=== PATIENT | female | born 1975 | race Caucasian/White ===

== ENCOUNTER 2020-07-20 05:16 | Inpatient (IN) | payer BC, SELFPAY ==
[2020-05-21 08:09] VITALS: BMI 25.8
--- NOTE | 2020-07-12 13:25 | EKG12_ITS ---
Test Reason : PREOP Blood Pressure : / mmHG Vent. Rate : 072 BPM Atrial Rate : 072 BPM P-R Int : 154 ms QRS Dur : 078 ms QT Int : 386 ms P-R-T Axes : 052 059 045 degrees QTc Int : 422 ms Normal sinus rhythm Nonspecific ST abnormality Abnormal ECG Confirmed by OLIVIER NICHOLS, MARK ([id number]), news editor ALTAGRACIA AVILA ([id number]) on 07/13/2020 12:25:03 PM Referred By: Chato Willett Confirmed By:MARK AGUAYO MD
[2020-07-12 14:24] LABS: Absolute Lymphocyte Count 1.77 X10^3/uL (0.83-4.51); Absolute Neutrophil Count 4.1 X10^3/uL (2.0-7.7); Basophil# 0.04 X10^3/uL; Basophil% 0.6 % (0-1); Eosinophil# 0.05 X10^3/uL; Eosinophils% 0.8 % (0-5); Hematocrit 40.4 % (37-47); Hemoglobin 13.1 g/dL (12.0-15.0); Lymphocyte # 1.77 X10^3/ul (4.0); Lymphocyte % 27.8 % (19-41); Mean Corp Hgb Conc 32.4 g/dL (32-36); Mean Corpuscular Hgb 29.8 pg (27.0-32.0); Mean Corpuscular Volume 91.8 fL (81-99); Mean Platelet Vol. 9.5 fl (6.2-12.0); Monocyte# 0.38 X10^3/uL; NRBC Flagged by Analyzer 0 % (0-5); Neutrophil % 64.3 % (47-70); Platelet Count 265 K/mm3 (150-450); RBC Distribution Width CV 12.2 % (11.6-14.6); RBC Distribution Width SD 40.9 fl (35.1-43.9); White Blood Count 6.4 K/mm3 (4.4-11.0)
[2020-07-12 14:50] LABS: Anion Gap 6 (5-15); BUN 11 mg/dL (7-18); Calcium,Total 9.4 mg/dL (8.5-10.1); Chloride 103 mmol/L (98-107); Creatinine, Serum 0.85 mg/dL (0.55-1.02); EST Glomerular Filtration Rate 77 mL/min (>60); Est Glom Filt Rate - Afr Amer 94 mL/min (>60); Glucose 90 mg/dL (74-106); Potassium 3.6 mmol/L (3.5-5.1); Sodium Level 140 mmol/L (136-145)
[2020-07-12 14:51] LABS: Magnesium 2.3 mg/dL (1.6-2.6)
[2020-07-12 15:21] LABS: HIV - WCH Non-Reactive (Nonreactive)
[2020-07-14 08:09] LABS: HEPATITIS B SURFACE AG Negative (Negative); Hepatitis A AB, Total Negative (Negative); Hepatitis A IgM Antibody Negative (Negative); Hepatitis B Core AB IgM Negative (Negative); Hepatitis B Core Ab Total Negative (Negative); Hepatitis C Ab <0.1 s/co ratio (0.0-0.9)
[2020-07-14 09:34] LABS: Hep B Surface Antibodies Non Reactive (.)
[2020-07-20] VITALS (13 sets, daily range): BP systolic 102–124; BP diastolic 51–84; PULSE 67–93; RESP 14–18; TEMP 36.3–36.7; O2SAT 95–100; BMI 26.9
--- NOTE | 2020-07-20 06:00 | HP_ITS ---
Intake Intake Visit Reasons: lumbar spine Allergies No Known Allergies Allergy (Verified 07/12/20 14:48) Medications Magnesium 250 mg PO DAILY 07/06/20 [History Confirmed 07/12/20] [facility], [facility] Medical History (Updated 05/21/20 @ 08:13 by Holli Hwang) h/o left leg fracture (Acute) Surgical History (Updated 05/21/20 @ 08:13 by Holli Hwang) History of cholecystectomy (Acute) Family History (Updated 05/21/20 @ 08:14 by Holli Hwang) Father Diabetes CHF (congestive heart failure) dialysis Mother Diabetes Social History (Updated 07/12/20 @ 16:[address] Chato Willett DO) household members: spouse, children housing: house Smoking Status: Never smoker alcohol intake: never what type of physical activity do you participate in: walking frequency: daily do you feel safe at home: Yes HPI lumbar spine: Details: Parts of this documentation were recorded by a scribe, this documentation accurately reflects the service provided and the decisions made by me, Dr. Chato Willett DO 07/12/20 [id number]. ROSIO DALEY is a 44 year old F here today for her pre-op appointment. Patient is here to sign surgical consent. DOS: 07/20/2020. Denies any medical changes since her last office visit. ROSIO is here for her preop 8 days prior to her surgery. She is scheduled for a 360 degree fusion at the L5-S1 level. There will not be a decompression. Unfortunately I do not have the disc. She has the MRI disc at home and promised to bring it on Sunday the day that she gets her Covid test 1 day before the actual surgery. I will be in the office that day and I can review the MRI again. Discussed what to expect the fact that she would be in the hospital at least until Sunday and the fact that she would get an ileus like everybody does. I answered all her questions and those of her sisters. We spoke of possible risks and complications including possibly of coma paralysis infection meningitis failed to relieve symptoms blood clot in the legs blood clot in the lungs microinfarction stroke among others. I answered all their questions I will see her again at surgery in 8 days. Assessment & Plan Problems 1. HNP (herniated nucleus pulposus), lumbar M51.26 Coding Level of Care Code Off vis,est,level 2 Diagnoses HNP (herniated nucleus pulposus), lumbar M51.26 Time Spent (min) 20
[2020-07-20] MEDS: Acetaminophen 500 MG Tablet 1000 MG PO ×2 (06:07→17:45)
[2020-07-20] MEDS: Insulin Lispro 100 UNIT/ML INSULN.PEN SC (06:07)
[2020-07-20] MEDS: Lactated Ringers 1,000 ML 100 ML IV ×3 (06:08→17:45)
[2020-07-20 07:06] LABS: Bedside Glucose 200 mg/dL (70-110)
--- NOTE | 2020-07-20 07:30 | DISC_PTH ---
PATIENT: ROSIO DALEY LOC: MS3 U#:[id number] AGE/SX: 44/F ROOM: [facility] [place] RE07/20/[address]: Dr. Chato Willett DO : 1975 BED: 1 DIS: 07/23/2020 SPEC #: [id number] RECD: 07/20/20 14:18 STATUS: CAMILO REQ #: [id number] EMELI: 07/20/20 07:[address]: Chato Willett DEPT: SURGICAL PATHOLOGY RECD BY: Supriya Conley ENTERED: 07/21/20 09:41 SP TYPE: DISC OTHR DR: MD Dr. Dewayne Peralta MD Tissues: Intervertebral disc, NOS Procedures: Surgery Specimen Level III HEADER OPERATION: ERAS, anterior approach for 360 lumbar PRE-OP DIAGNOSIS: Herniated nucleus pulposus, lumbar TISSUE SUBMITTED: Disc L5-S1 MICROSCOPIC DIAGNOSIS L5-S1 disc, discectomy: Degenerative and focal reparative change. Minute fragments of bone with no pathologic change. AM:paco 07/22/2020 MICROSCOPIC DESCRIPTION Slides are reviewed. GROSS DESCRIPTION Received in fixative is one container labeled with the patient's name and designated disc L5-S1. The specimen consists of multiple irregular fragments of indurated myers tissue that in aggregate measure 6 x 5 x 1 cm. Bearing Machine Operator portions are submitted in two cassettes. / AM:paco 07/21/20 TC:5 CPT: 35096
--- NOTE | 2020-07-20 07:30 | RAD_ITS ---
STUDY: X-RAY - LUMBAR SPINE REASON FOR EXAM: Female, 44 years old. 360 fusion, L5-S1. TECHNIQUE: A single intraoperative view(s) of the lumbar spine were obtained. COMPARISON: Lumbar spine, 05/21/2020 FINDINGS: A single crosstable lateral view of the lower spine demonstrates surgical probes at the level of the L5-S1 disc space. Please refer to the operative report for further details. RAD/Spine 1 View Any Level IMPRESSION: Intraoperative images performed during a L5-S1 fusion. Electronically Signed: Chris Brandon DO at 16:49 EDT Tel [phone], Service support ,
[2020-07-20] MEDS: Cefazolin 2 GM in 0.9% Normal Saline 100 ML IV (08:00)
[2020-07-20] MEDS: Heparin 10,000 UNITS/10 ML Vial 10000 UNITS (08:46)
--- NOTE | 2020-07-20 09:35 | RAD_ITS ---
STUDY: X-RAY - LUMBAR SPINE REASON FOR EXAM: Female, 44 years old. 360 fusion, L5-S1 TECHNIQUE: A single crosstable intraoperative view(s) of the lumbar spine were obtained. COMPARISON: 07/20/2020 (09). FINDINGS: There is no evidence of anterior fusion of L5-S1 with a disc spacer satisfactory position. The hardware is intact. There is no change in alignment. Please refer to the operative report for further details. RAD/Spine 1 View Any Level IMPRESSION: Anterior fusion of the lumbar spine the OR. Electronically Signed: Chris Brandon DO at 23:42 EDT Tel [phone], Service support ,
--- NOTE | 2020-07-20 11:30 | PCM.OPRPT ---
Report of Operation Date of Procedure: 07/20/20 Description of Surgical Findings:: Operative diagnosis: Severe degenerative disc disease L5-S1 with intractable low back pain Postoperative diagnosis: The same Procedure: Anterior lumbar interbody fusion with application of cage, spine plate, and BMA from left iliac crest Cosurgeons: Dr. Willett and Dr. Carrera railways assistant: Mekhi from surgery Anesthesia: General endotracheal anesthesia administered by [facility] Estimated blood loss: 50 cc Drains: None Complications: None Procedure: Patient was taken to the OR she was placed in the supine position on the operating table she was then placed under general endotracheal anesthesia a Chao catheter was inserted neuro monitoring placed all the leads on the patient. The abdomen was then prepped and draped standard fashion. The surgical approach is described in Dr. Carrera's operative summary. Once he had L5-S1 exposed and documented with fluoroscopy I then cut the anterior annulus with a 10 blade and removed it I then removed more disc from the disc space with curettes and pituitary rongeurs. Note that she had a very decreased disc space and had to use a bur to enlarge it just a bit removing part of the endplate. Note that likely she had sclerotic bone underneath to maintain strength. I got all the way back to the posterior annulus. Once all the cartilage was removed all the endplates we then took her measurements for a cage. We decided on 12 mm high cage the 25 x 35 mm 8 degree. The cage was then filled with spongy demineralized bone matrix. Note that earlier I placed a Jamshidi needle in the left ASIS and obtained 60 cc of BMA. This was handed off to the non morse intercept technician it was then concentrated 10 times and from the other cells. It was handed off to us we then soaked the demineralized bone matrix and the cage with the patient's own stem cells I then tamped into place and countersunk it a couple of millimeters. I then used a 25 mm anterior plate we used the awl to punch 2 holes into L5 and 2 into S1 and at the top we entered with 30 mm screws at the bottom we entered with 25 mm screws the locking mechanisms were then activated. An amniotic membrane was then placed over the anterior portion of the plate to prevent it from adhering to the iliac vessels. An intraoperative vascular x-ray was taken demonstrate excellent position of the cage and the screws. The closure is then described in Dr. Carrera's operative summary. Note also that Dr. Carrera was instrumental in the insertion of the cage and the application of the screws and the awl. This is the end of operative summary on Jackie Garcia. This Dr. Willett dictating.
--- NOTE | 2020-07-20 12:17 | RAD_ITS ---
STUDY: X-RAY - LUMBAR SPINE REASON FOR EXAM: Female, 44 years old. 360 TECHNIQUE: Single lateral view(s) of the lumbar spine were obtained. COMPARISON: Comparison is made with prior study done earlier in the day. FINDINGS: The patient is status post anterior fusion with disc spacer placement. A localization instrument is seen along the posterior aspect of the L5-S1 level. RAD/Spine 1 View Any Level IMPRESSION: Status post anterior fusion. Metallic localization instrument is seen overlying the posterior aspect of the L5-S1 disc space level. Electronically Signed: Rex Beckham MD at 13:58 EDT , Service support ,
[2020-07-20] MEDS: Thrombin 5,000 IU Kit (PSA) 5,000 IU Vial 5000 IU TOPICAL (12:30)
--- NOTE | 2020-07-20 12:35 | RAD_ITS ---
STUDY: X-RAY - LUMBAR SPINE REASON FOR EXAM: Female, 44 years old. L5-S1 fusion. TECHNIQUE: A single crosstable lateral intraoperative view(s) of the lumbar spine were obtained. COMPARISON: 07/20/2020 (1217) FINDINGS: Again seen is the anterior fusion of L5-S1. There is now a metallic plate posterior to the L1 vertebra which was not previously present. This consistent with a posterior fusion of the spinous processes. Please refer to the operative report for further details. RAD/Spine 1 View Any Level IMPRESSION: L5-S1 fusion in the OR. Electronically Signed: Chris Brandon DO at 17:18 EDT Tel [phone], Service support ,
--- NOTE | 2020-07-20 13:35 | PCM.OPRPT ---
Report of Operation Date of Procedure: 07/20/20 Description of Surgical Findings:: Preoperative diagnosis: Severe degenerative disc disease L5-S1 Postoperative diagnoses: The same Procedure: Posterior fusion L5-S1 with internal segmental fixation Surgeon: Dr. Willett housekeeping assistant: Mekhi from surgery Anesthesia: General endotracheal anesthesia administered by [facility] Estimated blood loss: Less than 30 cc Drains: None Complications: None Procedure: Once the anterior surgery was done we then placed the patient in the prone position on the Rosas frame after proper positioning with care to protect her bony prominences her breasts her brachial plexus on both sides and her ulnar nerves of both elbows and the facial features the back was prepped and draped in standard fashion I made a longitudinal incision centered over L5-S1 subcutaneous tissues were incised length of the skin incision. I then open the lumbar fascia to the left of the spinous processes and elevated the paravertebral muscles off the lamina of S1 and the lamina of L5. I did the exact same thing on the opposite side. We then took an intraoperative x-ray with a marker in place to confirm that we were indeed at L5-S1. I then put a spacer in place by removing the interspinous ligament with double-action rongeurs. Measurements for the spacer bone graft were then taken. I then prepped the lamina on both sides at both levels by burring them and preparing it for the bone graft the spongy demineralized bone matrix graft was placed on both sides spanning the distance between the lamina of 5 in the lamina of S1 bilaterally. After this the endograft was placed between the spinous processes tamped into place. The internal fixation device was then applied and the locking mechanism was activated. This was segmental fixation between L5 and S1. Once in place we thoroughly irrigated with copious amounts of sterile saline. We then closed the lumbar fascia using [id number] suture with #1 Vicryl followed by closure of the subcutaneous tissues with 2-0 Vicryl in interrupted fashion and skin was approximated using skin clips sterile dressings were then applied patient was then recovered in the OR moved to her hospital bed and taken to recovery in satisfactory condition. There is the end of operative summary on Jackie Garcia. Is Dr. Willett dictating.
[2020-07-20 13:51] LABS: Bedside Glucose 144 mg/dL (70-110)
--- NOTE | 2020-07-20 15:28 | PCM.OPRPT ---
Problem List (1) DDD (degenerative disc disease) Status: Acute Report of Operation Date of Procedure: 07/20/20 Type of Anesthesia:: General Description of Procedure: Operative diagnosis: Severe degenerative disc disease L5-S1 with intractable low back pain Postoperative diagnosis: The same Procedure: Anterior lumbar interbody fusion with application of cage, spine plate, and BMA from left iliac crest Cosurgeons: Dr. Willett and Dr. Carrera EBL: 50 cc Operation: Patient brought to the operating room. Underwent the appropriate timeout consent. Underwent general anesthesia. Patient was given appropriate antibiotics and the appropriate monitoring lines were all placed. She was prepped and draped in a sterile fashion. We then did a left lower quadrant incision and dissected down onto the anterior rectus sheath. We excised into this and freed it just to the midline and lateral past the rectus into the obliques. We freed up a flap inferior and superior of the anterior rectus. We then got lateral to the rectus into the retroperitoneal plane. We then dissected down onto the iliopsoas muscle and freed up along this space. We then put in the Omni retractor. Placed the retractor to the right and superior. Then using blunt dissection dissected down onto the L5-S1 disc space. Several venous branches in the middle sacral artery were identified and freed up. They were clipped proximally and distally and divided. We then freed up onto the anterior disc space. We confirmed after placing the needle and with x-ray that this was L5-S1. Patient then underwent a extensive discectomy. This dilated up with a 12 mm dilator appear to be good caliber. Bone marrow aspirate was taken. Then placed in a 12 mm 8 degree cage. Prior to this the bone matrix and the bone marrow aspirate was placed inside the cage. This was in good position. Plate was placed on top and started with an awl and then placed to the 30 mm screws into L5 and 225 mm in the sacrum. There is good hemostasis noted. Biofilm was placed over the cage. Retractors were released and there is good hemostasis still. Completion x-ray showed good position of the cage and the screws. We then closed the fascia with a Stratus fix and then 2-0 Vicryl 3-0 Vicryl in layers. 4-0 Monocryl and Dermabond for the skin. This completed the anterior component of the operation. I was needed for co-surgeon throughout the extent of the operation and with the placement of the cage and plate.
--- NOTE | 2020-07-20 16:28 | PN_ITS ---
<Ginna Dinero - Last Filed: 07/20/20 16:28> Patient Problems: Active and Suspected Problems (Last Updated 05/21/20 @ 08:13 by Holli Hwang) DDD (degenerative disc disease) (Acute) Reason for Visit: Patient is a 44-year-old female who underwent a L5-S1 lumbar fusion earlier today. Patient medical history includes degenerative disc disease. Patient currently lying in bed with complaints of pain and discomfort immediately upon return from PACU. Patient received 100 mcg of fentanyl IV and 12 mg morphine total in PACU. Routine Tylenol ordered along with as needed Ultram. Patient takes magnesium as a dietary supplement at home will check magnesium level before restarting home dose. Vitals/I&O's: Vital Signs Temp Pulse Resp BP Pulse Ox 97.4 F L 84 14 114/51 L 100 07/20/20 15:40 07/20/20 15:45 07/20/20 15:40 07/20/20 15:40 07/20/20 15:45 Oxygen Flow Rate (L/min) 6 Oxygen Delivery Method Simple Mask Weight: 176 lb 12.972 oz Body Mass Index (BMI) 26.9 Finger Stick Blood Glucose 144 Intake and Output for Last 24 Hours 07/18/20 07/19/20 07/20/20 23:59 23:59 23:59 Intake Total 1214.5 / 1214.5 Output Total 1400 / 1400 Balance -185.5 / -185.5 General: Alert, Oriented x3, Cooperative HEENT: Atraumatic, PERRLA, EOMI, Normocephalic Neck: Supple, No JVD, Negative Carotid Bruits Lungs: Clear to auscultation, Normal air movement Cardiovascular: Regular rate, No murmurs Abdomen: Bowel Sounds Present, Soft, Non Tender Extremities: No edema, Capillary Refill Less than 3 Seconds Skin: No rashes, No breakdown Musculoskeletal: No Tenderness to Palpation of Joints or Extremities Neurological: Cranial nerves II-XII grossly intact Psych/Mental Status: Normal Affect, Appropriate Microbiology Past 72 Hours 07/19/20 09:10 Interface Orders SARS-CoV-2 Antigen (Rapid) - Final Laboratory Results 07/20/20 05:54: POC Glucose 200 H 07/20/20 13:47: POC Glucose 144 H Current Medications Diazepam (Diazepam 5 Mg Tablet) 5 mg PO Q6H PRN PRN PRN Reason: Muscle Spasms Enteral Nutritional Formula (Ensure Surgery 237 Ml Liquid) 237 ml PO TIDCM [facility] Last Admin: 07/20/20 15:33 Dose: Not Given Documented by: Famotidine (Famotidine 20 Mg Tablet) 20 mg PO BID [facility] Lactated Ringer's () 1,000 mls @ 100 mls/hr IV .Q10H [facility] Last Admin: 07/20/20 09:30 Dose: 100 mls/hr Documented by: Cefazolin Sodium () 1 gm in 50 mls @ 100 mls/hr IV Q8H [facility] Sodium Chloride () 250 mls @ 15 mls/hr IV .[id number] PRN PRN Reason: Saline Flush Morphine Sulfate (Morphine 4 Mg/Ml Syringe) 2 - 4 mg IV Q2H PRN PRN PRN Reason: Pain Score 6-10 Morphine Sulfate (Morphine 2 Mg/Ml Syringe) 2 - 4 mg IV Q2H PRN PRN PRN Reason: Pain Score 6-10 Ondansetron HCl (Ondansetron 4 Mg/2 Ml Vial) 4 mg IV Q8H PRN PRN PRN Reason: NAUSEA Senna/Docusate Sodium (Senna/Docusate Sodium 1 Tablet) 2 tablet PO BID [facility] Sodium Chloride (0.9% Saline Lock 10 Ml Syringe) 10 - 40 ml IV UD PRN PRN Reason: SALINE FLUSH Tramadol HCl (Tramadol 50 Mg Tablet) 50 - 100 mg PO Q6H PRN PRN PRN Reason: Pain Score 4-5 Zolpidem Tartrate (Zolpidem Tartrate 5 Mg Tablet) 5 mg PO QHS PRN PRN PRN Reason: INSOMNIA STROKE Vital Signs/Narrative: Vital Signs Temp Pulse Resp BP Pulse Ox 07/20/20 15:45 84 100 07/20/20 15:40 97.4 F L 71 14 114/51 L 100 07/20/20 15:15 97.3 F L 85 16 102/52 L 96 07/20/20 15:00 67 16 107/53 L 100 07/20/20 14:45 72 16 108/52 L 100 07/20/20 14:30 80 16 124/81 H 100 07/20/20 14:15 82 16 113/84 H 100 07/20/20 14:00 93 16 121/74 H 100 07/20/20 13:32 97.3 F L 87 16 112/59 L 95 Medical Necessity - Tobacco Use Smoking Status: Never smoker Tobacco Use: Non-smoker Assessment/Plan All Active Problems (Last Updated 05/21/20 @ 08:13 by Holli Hwang) DDD (degenerative disc disease) (Acute) 1. Anterior fusion L5-S1 with internal segmental fixation and anterior lumbar interbody fusion with application of cage, spine plate, and BMA from left iliac crest-Surgery complete without complications per surgery report. Valium and Morphine ordered PRN. DVT Prophylaxis-SCD's ordered. This patient was seen by SOCORRO Prieto under the supervision of Dr. Quiñones. <Kristyn Quiñones - Last Filed: 07/20/20 17:32> Vitals/I&O's: Vital Signs Temp Pulse Resp BP Pulse Ox 97.4 F L 84 14 114/51 L 96 07/20/20 15:40 07/20/20 15:45 07/20/20 15:40 07/20/20 15:40 07/20/20 16:45 Oxygen Flow Rate (L/min) 6 Oxygen Delivery Method Room Air Weight: 80.2 kg Body Mass Index (BMI) 26.9 Finger Stick Blood Glucose 144 Intake and Output for Last 24 Hours 07/18/20 07/19/20 07/20/20 23:59 23:59 23:59 Intake Total 1214.5 / 1214.5 Output Total 1400 / 1400 Balance -185.5 / -185.5 Microbiology Past 72 Hours 07/19/20 09:10 Interface Orders SARS-CoV-2 Antigen (Rapid) - Final Laboratory Results 07/20/20 05:54: POC Glucose 200 H 07/20/20 13:47: POC Glucose 144 H 07/20/20 16:58: Magnesium 2.8 H Current Medications Acetaminophen (Acetaminophen 500 Mg Tablet) 1,000 mg PO Q8 SHEREEN Diazepam (Diazepam 5 Mg Tablet) 5 mg PO Q6H PRN PRN PRN Reason: Muscle Spasms Enteral Nutritional Formula (Ensure Surgery 237 Ml Liquid) 237 ml PO TIDCM [facility] Last Admin: 07/20/20 15:33 Dose: Not Given Documented by: Famotidine (Famotidine 20 Mg Tablet) 20 mg PO BID [facility] Lactated Ringer's () 1,000 mls @ 100 mls/hr IV .Q10H [facility] Last Admin: 07/20/20 09:30 Dose: 100 mls/hr Documented by: Cefazolin Sodium () 1 gm in 50 mls @ 100 mls/hr IV Q8H [facility] Sodium Chloride () 250 mls @ 15 mls/hr IV .[id number] PRN PRN Reason: Saline Flush Morphine Sulfate (Morphine 4 Mg/Ml Syringe) 2 - 4 mg IV Q2H PRN PRN PRN Reason: Pain Score 6-10 Morphine Sulfate (Morphine 2 Mg/Ml Syringe) 2 - 4 mg IV Q2H PRN PRN PRN Reason: Pain Score 6-10 Ondansetron HCl (Ondansetron 4 Mg/2 Ml Vial) 4 mg IV Q8H PRN PRN PRN Reason: NAUSEA Senna/Docusate Sodium (Senna/Docusate Sodium 1 Tablet) 2 tablet PO BID [facility] Sodium Chloride (0.9% Saline Lock 10 Ml Syringe) 10 - 40 ml IV UD PRN PRN Reason: SALINE FLUSH Tramadol HCl (Tramadol 50 Mg Tablet) 50 - 100 mg PO Q6H PRN PRN PRN Reason: Pain Score 4-5 Zolpidem Tartrate (Zolpidem Tartrate 5 Mg Tablet) 5 mg PO QHS PRN PRN PRN Reason: INSOMNIA STROKE Vital Signs/Narrative: Vital Signs Temp Pulse Resp BP Pulse Ox 07/20/20 16:45 96 07/20/20 15:45 84 100 07/20/20 15:40 97.4 F L 71 14 114/51 L 100 07/20/20 15:15 97.3 F L 85 16 102/52 L 96 07/20/20 15:00 67 16 107/53 L 100 07/20/20 14:45 72 16 108/52 L 100 07/20/20 14:30 80 16 124/81 H 100 07/20/20 14:15 82 16 113/84 H 100 07/20/20 14:00 93 16 121/74 H 100 07/20/20 13:32 97.3 F L 87 16 112/59 L 95 Assessment/Plan This patient was seen in conjunction with Ginna Almodovar NP. I have independently interviewed and examined the patient and reviewed pertinent historical, laboratory, and other data. Please refer to her note for patient's presentation, findings, and recommendations. 44-year-old female with no significant past medical history except for chronic back pain that started 3 years ago when she slipped on concrete steps that had ice on them. She fell on her buttocks. A year later, was lifting a heavy log, she had a twisting motion and had difficulty walking. She tried [id number] medication. She had followed up with her chiropractor. She later was seen by Dr. Ibarra and had had epidural as well as facet injections which were effective for a day or 2 and then no more. She stated that her pain was worse with prolonged sitting. Walking around does not make it worse. She denied any bowel or bladder dysfunction. Patient had an outpatient MRI of the lumbar spine that showed degenerative disc with bulge at L5-S1. She presents for an elective 360 degree fusion at L5-S1. Patient was seen in her postoperative period. Complains of severe pain in the back. Denied any incontinence of urine or stool. Able to wiggle her toes. Vitals were reviewed -stable Physical Exam: Gen: Looks in some discomfort, in pain not pale, not jaundiced, alert oriented x3 CVS:HS I +II, regular, no murmurs RESP: Diminished at lung bases GI: Dressing over the suprapubic region, clean and dry, BS hypoactive, nontender, no palpable organs EXT:No edema Labs reviewed: ASSESSMENT: 1. POD#0 status post 360 degrees fusion L5-S1 2. Chronic low back pain Meds reviewed Plan: Add scheduled Tylenol 1000mg TID Continue with Tramadol prn, morphine prn PT/OT to evaluate Inpatient E&M: 64781 Init Hosp L3
[2020-07-20 17:16] LABS: Magnesium 2.8 mg/dL (1.6-2.6)
[2020-07-20] MEDS: diazePAM 5 MG Tablet PO (17:45)
[2020-07-20] MEDS: Cefazolin 1 GM/50 ML BAG IV (20:25)
[2020-07-20] MEDS: Famotidine 20 MG Tablet PO (22:51)
[2020-07-20] MEDS: Senna/Docusate Sodium 1 Tablet 2 TABLET PO (22:51)
[2020-07-20] MEDS: traMADol 50 MG Tablet PO (22:55)
[2020-07-21] VITALS (8 sets, daily range): BP systolic 103–123; BP diastolic 56–70; PULSE 76–100; RESP 16–18; TEMP 36.4–37.2; O2SAT 94–100
[2020-07-21] MEDS: diazePAM 5 MG Tablet PO ×3 (02:17→22:24)
[2020-07-21] MEDS: Lactated Ringers 1,000 ML 100 ML IV ×2 (02:17→12:16)
[2020-07-21] MEDS: Cefazolin 1 GM/50 ML BAG IV (04:45)
[2020-07-21] MEDS: Acetaminophen 500 MG Tablet 1000 MG PO ×3 (04:46→22:25)
[2020-07-21] MEDS: traMADol 50 MG Tablet PO ×3 (05:55→20:04)
--- NOTE | 2020-07-21 08:28 | PCM.PROGNOTE ---
Patient Problems: Active and Suspected Problems (Last Updated 05/21/20 @ 08:13 by Holli Hwang) DDD (degenerative disc disease) (Acute) Subjective: Chief complaint: Follow-up after consultation for postoperative medical management. Patient seen and examined. No acute events overnight. This morning, she mentioned that her back pain is manageable but still there. Denied any other complaints. Her vital signs are stable. - Physical Exam Vitals/I&O's: Vital Signs Temp Pulse Resp BP Pulse Ox 98.6 F 91 16 108/64 94 07/21/20 05:52 07/21/20 05:52 07/21/20 05:52 07/21/20 05:52 07/21/20 07:32 Oxygen Flow Rate (L/min) 6 Oxygen Delivery Method Room Air Weight: 176 lb 12.972 oz Body Mass Index (BMI) 26.9 Finger Stick Blood Glucose 144 Intake and Output for Last 24 Hours 07/19/20 07/20/20 07/21/20 23:59 23:59 23:59 Intake Total 2956.17 / 2956.17 1183.34 / 1183.34 Output Total 2650 / 2650 850 / 850 Balance 306.17 / 306.17 333.34 / 333.34 General: Alert, Oriented x3, Cooperative, No apparent distress HEENT: Atraumatic, PERRLA, EOMI, Normocephalic Oral: Moist Mucosa, No Gingival or Mucosal Lesions/ Ulcerations Neck: Supple, No JVD, Negative Carotid Bruits, Trachea Midline, Thyroid Normal Size and Texture Lungs: Clear to auscultation, Normal air movement, No rhonchi, No wheeze, No rales Cardiovascular: Regular rate, Regular Rhythm, Normal S1, Normal S2, PMI Normal Abdomen: Bowel Sounds Present, Soft, Non Tender, Non-Distended, No Hepato-splenomegaly Extremities: No clubbing, No cyanosis, No edema Skin: No rashes, No breakdown Lymphatic: No Cervical, Supraclavicular, or Inguinal Adenopathy Neurological: Cranial nerves II-XII grossly intact, Motor Exam 5/5 strength throughout Psych/Mental Status: Normal Affect, Appropriate, Alert and oriented to time, place, person, mood and affect Microbiology Past 72 Hours 07/19/20 09:10 Interface Orders SARS-CoV-2 Antigen (Rapid) - Final Laboratory Results 07/20/20 13:47: POC Glucose 144 H 07/20/20 16:58: Magnesium 2.8 H 07/21/20 07:50: Hemoglobin A1c Pending Current Medications Acetaminophen (Acetaminophen 500 Mg Tablet) 1,000 mg PO Q8 [facility] Last Admin: 07/21/20 04:46 Dose: 1,000 mg Documented by: Diazepam (Diazepam 5 Mg Tablet) 5 mg PO Q6H PRN PRN PRN Reason: Muscle Spasms Last Admin: 07/21/20 02:17 Dose: 5 mg Documented by: Enteral Nutritional Formula (Ensure Surgery 237 Ml Liquid) 237 ml PO TIDCM [facility] Last Admin: 07/21/20 08:27 Dose: Not Given Documented by: Famotidine (Famotidine 20 Mg Tablet) 20 mg PO BID [facility] Last Admin: 07/20/20 22:51 Dose: 20 mg Documented by: Lactated Ringer's () 1,000 mls @ 100 mls/hr IV .Q10H [facility] Last Infusion: 07/21/20 05:30 Dose: 100 mls/hr Documented by: Sodium Chloride () 250 mls @ 15 mls/hr IV .[id number] PRN PRN Reason: Saline Flush Morphine Sulfate (Morphine 4 Mg/Ml Syringe) 2 - 4 mg IV Q2H PRN PRN PRN Reason: Pain Score 6-10 Morphine Sulfate (Morphine 2 Mg/Ml Syringe) 2 - 4 mg IV Q2H PRN PRN PRN Reason: Pain Score 6-10 Ondansetron HCl (Ondansetron 4 Mg/2 Ml Vial) 4 mg IV Q8H PRN PRN PRN Reason: NAUSEA Senna/Docusate Sodium (Senna/Docusate Sodium 1 Tablet) 2 tablet PO BID [facility] Last Admin: 07/20/20 22:51 Dose: 2 tablet Documented by: Sodium Chloride (0.9% Saline Lock 10 Ml Syringe) 10 - 40 ml IV UD PRN PRN Reason: SALINE FLUSH Tramadol HCl (Tramadol 50 Mg Tablet) 50 - 100 mg PO Q6H PRN PRN PRN Reason: Pain Score 4-5 Last Admin: 07/21/20 05:55 Dose: 100 mg Documented by: Zolpidem Tartrate (Zolpidem Tartrate 5 Mg Tablet) 5 mg PO QHS PRN PRN PRN Reason: INSOMNIA Medical Necessity - Tobacco Use Smoking Status: Never smoker Tobacco Use: Non-smoker Assessment/Plan All Active Problems (Last Updated 05/21/20 @ 08:13 by Holli Hwang) DDD (degenerative disc disease) (Acute) This is a 44 years old female patient underwent elective posterior fusion of L5-S1 with internal segmental fixation for severe disc disease of L5-S1. #1 status post posterior fusion of L5-S1 with internal segmental fixation: This was done for severe disc disease of L5-S1, postoperative day 1. She is on IV morphine as needed for pain as well as tramadol as needed. Her vital signs are stable, afebrile. Preoperative routine blood work was reviewed and was unremarkable. Her blood glucose was up to 200 yesterday. She has no personal history of diabetes but she has some form history of diabetes. Plan: We will check hemoglobin A1c, patient is stable from medical standpoint. I will sign off, call if needed. #2 DVT prophylaxis: SCDs. This note was generated with [employer] dictation software. It may contain incorrect words, spelling, and punctuation that were not noted in checking the note before signing. Inpatient E&M: 91068 Subs Hosp L2
[2020-07-21] MEDS: Senna/Docusate Sodium 1 Tablet 2 TABLET PO ×2 (10:05→22:25)
[2020-07-21] MEDS: Famotidine 20 MG Tablet PO ×2 (10:05→22:24)
--- NOTE | 2020-07-21 10:30 | CASEMGMT ---
RN CM Face to Face with patient for initial transition planning/care coordination assessment. RN CM introduced self and role at [facility]. Patient sitting in chair, alert and oriented. Patient willing to participate in assessment and is able to answer all questions appropriately. Care providers, pharmacy, and demographics verified. Patient wishes to discharge home, denies need for home health at this time. Patient states she has no further needs or concerns at this time. CM to follow for discharge planning needs that may arise. PCP: [facility] Specialists: [facility] spinal surgeon Preferred Pharmacy: [facility] in [place] Insurance: [place] Prescription Benefit: yes Living Will/HPOA: none LNOK: Living Arrangements: Patient lives with in a ranch style home with 2 steps to enter. Patient states she was independent prior to surgery. Transportation: DME/HHC: patient denies previous DME or HHC. Will monitor for need for FWW at discharge. Disposition Plan: Patient to discharge home with family support and follow-up plans in place. Tori LEE, RN, CM
[2020-07-21 11:52] LABS: Hemoglobin A1c 5.5 % (3.8-5.6)
--- NOTE | 2020-07-21 12:51 | PCM.PN.BLA ---
Progress Note Postop day #1: She is doing reasonably well she still does not have any bowel sounds and has not passed any gas. She actually got up and walked yesterday the day of her surgery and did it again at 1030 this morning. Casual to do it yet again later this afternoon. Her pain is tolerable. Worried about when she will get to eat regular food and that is a good sign. As she remains on clear liquids until further notice. Logically she is intact in both lower extremities. Both her dressings are dry. Progress is satisfactory. STROKE Vital Signs/Narrative: Vital Signs Temp Pulse Resp BP Pulse Ox 07/21/20 08:58 18 07/21/20 08:55 98.3 F 78 16 106/65 98
[2020-07-21] MEDS: 0.9% Saline Lock 10 ML Syringe IV (13:55)
[2020-07-21] MEDS: Morphine 2 MG/ML Syringe IV (13:55)
[2020-07-22 02:14] VITALS: BP 111/55; PULSE 100; RESP 18; TEMP 37; O2SAT 92
[2020-07-22] MEDS: traMADol 50 MG Tablet PO ×3 (02:19→19:58)
[2020-07-22] MEDS: Acetaminophen 500 MG Tablet 1000 MG PO ×3 (06:03→22:43)
[2020-07-22 07:06] VITALS: O2SAT 92
[2020-07-22 08:15] VITALS: BP 102/65; PULSE 88; RESP 18; TEMP 37.2; O2SAT 93
[2020-07-22] MEDS: diazePAM 5 MG Tablet PO ×2 (10:10→22:43)
[2020-07-22] MEDS: Senna/Docusate Sodium 1 Tablet 2 TABLET PO ×2 (10:11→22:43)
[2020-07-22] MEDS: Famotidine 20 MG Tablet PO ×2 (10:11→22:43)
--- NOTE | 2020-07-22 14:51 | PN_ITS ---
Progress Note Postop day #2: Patient is doing quite well today much better than yesterday. She has been up and walking several times today. Her dressings are both dry. Logically she is intact in both lower extremities. He is alert and well- oriented actually starting to have some bowel sounds at this time. She is also has some flatulence. These are all good signs. I suspect that she will will be able to go home tomorrow and start eating and advancing her diet on Sunday we will change her posterior dressing tomorrow.
[2020-07-22 19:52] VITALS: BP 111/65; PULSE 101; RESP 18; TEMP 37.2; O2SAT 97
[2020-07-22] MEDS: Zolpidem Tartrate 5 MG Tablet PO (22:43)
[2020-07-22] MEDS: 0.9% Saline Lock 10 ML Syringe IV (22:45)
[2020-07-23 02:23] VITALS: BP 115/62; PULSE 94; RESP 18; TEMP 36.9; O2SAT 93
[2020-07-23] MEDS: traMADol 50 MG Tablet PO ×2 (05:44→12:35)
[2020-07-23] MEDS: Acetaminophen 500 MG Tablet 1000 MG PO ×2 (05:44→13:58)
[2020-07-23 07:31] VITALS: BP 108/70; PULSE 80; RESP 16; TEMP 36.6; O2SAT 97
[2020-07-23 07:37] VITALS: RESP 16
[2020-07-23 08:45] VITALS: PULSE 72
[2020-07-23] MEDS: Famotidine 20 MG Tablet PO (09:25)
[2020-07-23] MEDS: Senna/Docusate Sodium 1 Tablet 2 TABLET PO (09:25)
[2020-07-23 10:42] VITALS: BP 105/69; PULSE 78; RESP 16; TEMP 36.8; O2SAT 97
--- NOTE | 2020-07-23 13:37 | DCINST_ITS ---
Discharge Diet: Light diet - advance as tolerated Discharge Activity: May Not Drive, May not drive while taking narcotic pain medications., May Shower May shower in (days): 3 May resume sexual activity in: 4-6 weeks Weight Bearing Status: Full weight bearing Call your doctor if your incision/area has: Increased Pain/ Swelling, Foul Smelling Discharge Call your doctor if you observe: Fever of 101 or Higher, Shortness of breath, Chest pain Remove Dressing in (days):: 2 Cleanse incision/area with: Soap & Water Allergies/Adverse Reactions: Allergies No Known Allergies Allergy (Verified 07/12/20 14:48) Primary Care Physician: Dewayne Emery MD [Primary Care Provider] - Test Results: Test results from this visit will be discussed in further detail at your follow- up appointment, if applicable. Please Follow Up With: dr Willett on Proposed Discharge Date: 07/23/20
--- NOTE | 2020-07-23 13:42 | DS.PCM_ITS ---
Discharge Date and Diagnosis - Problem List Patient Problems: Active and Suspected Problems (Last Updated 05/21/20 @ 08:13 by Holli Hwang) DDD (degenerative disc disease) (Acute) Date of Admission: 07/20/20 Date of Discharge: 07/23/20 - Primary Discharge Diagnosis Acute Problems: Active Problems (Last Updated 05/21/20 @ 08:13 by Holli Hwang) DDD (degenerative disc disease) (Acute) Hospital Course and Treatment Summary of Care Provided: The patient is a 44 year old F [] Patient Problems: Active and Suspected Problems (Last Updated 05/21/20 @ 08:13 by Holli Hwang) DDD (degenerative disc disease) (Acute) - Physical Exam Vitals/I&O's: Vital Signs Temp Pulse Resp BP Pulse Ox 98.3 F 78 16 105/69 97 07/23/20 10:42 07/23/20 10:42 07/23/20 10:42 07/23/20 10:42 07/23/20 10:42 Oxygen Flow Rate (L/min) 6 Oxygen Delivery Method Room Air Weight: 176 lb 12.972 oz Body Mass Index (BMI) 26.9 Finger Stick Blood Glucose 144 Intake and Output for Last 24 Hours 07/21/20 07/22/20 07/23/20 23:59 23:59 23:59 Intake Total 5333.34 / 5333.34 2650 / 2650 1070 / 1070 Output Total 3050 / 3050 200 / 200 Balance 2283.34 / 2283.34 2450 / 2450 1070 / 1070 Current Medications Acetaminophen (Acetaminophen 500 Mg Tablet) 1,000 mg PO Q8 ON LICENSE OF [facility] Last Admin: 07/23/20 05:44 Dose: 1,000 mg Documented by: Diazepam (Diazepam 5 Mg Tablet) 5 mg PO Q6H PRN PRN PRN Reason: Muscle Spasms Last Admin: 07/22/20 22:43 Dose: 5 mg Documented by: Famotidine (Famotidine 20 Mg Tablet) 20 mg PO BID ON [facility] OF [facility] Last Admin: 07/23/20 09:25 Dose: 20 mg Documented by: Sodium Chloride () 250 mls @ 15 mls/hr IV .[id number] PRN PRN Reason: Saline Flush Morphine Sulfate (Morphine 4 Mg/Ml Syringe) 2 - 4 mg IV Q2H PRN PRN PRN Reason: Pain Score 6-10 Morphine Sulfate (Morphine 2 Mg/Ml Syringe) 2 - 4 mg IV Q2H PRN PRN PRN Reason: Pain Score 6-10 Last Admin: 07/21/20 13:55 Dose: 2 mg Documented by: Ondansetron HCl (Ondansetron 4 Mg/2 Ml Vial) 4 mg IV Q8H PRN PRN PRN Reason: NAUSEA Senna/Docusate Sodium (Senna/Docusate Sodium 1 Tablet) 2 tablet PO BID [facility] Last Admin: 07/23/20 09:25 Dose: 2 tablet Documented by: Sodium Chloride (0.9% Saline Lock 10 Ml Syringe) 10 - 40 ml IV UD PRN PRN Reason: SALINE FLUSH Last Admin: 07/22/20 22:45 Dose: 10 ml Documented by: Tramadol HCl (Tramadol 50 Mg Tablet) 50 - 100 mg PO Q6H PRN PRN PRN Reason: Pain Score 4-5 Last Admin: 07/23/20 12:35 Dose: 100 mg Documented by: Zolpidem Tartrate (Zolpidem Tartrate 5 Mg Tablet) 5 mg PO QHS PRN PRN PRN Reason: INSOMNIA Last Admin: 07/22/20 22:43 Dose: 5 mg Documented by: Discharge Diet: Light diet - advance as tolerated Discharge Activity: May Not Drive, May not drive while taking narcotic pain medications., May Shower May shower in (days): 3 May resume sexual activity in: 4-6 weeks Weight Bearing Status: Full weight bearing Call your doctor if your incision/area has: Increased Pain/ Swelling, Foul Smelling Discharge Call your doctor if you observe: Fever of 101 or Higher, Shortness of breath, Chest pain Remove Dressing in (days):: 2 Cleanse incision/area with: Soap & Water Primary Care Physician: Dewayne Emery MD [Primary Care Provider] - Please Follow Up With: dr Willett on - Tobacco Use Smoking Status: Never smoker Tobacco Use: Non-smoker Meaningful Use Info Meaningful Use Diagnoses (Choose all that apply): None applicable
[2020-07-23 14:53] VITALS: BP 108/68; PULSE 84; RESP 18; TEMP 37.1; O2SAT 95
== END 2020-07-23 17:03 | disposition home or self-care (01) | DRG 460 ==
LOC: ACINP 09:23 → MS3 15:51
PROVIDERS: Anesthesiology; Hospitalist; Nurse Practitioner Family; Admitting Provider Orthopaedic Surgery; PCP Family Medicine; Referring Provider Orthopaedic Surgery; Visit Provider Orthopaedic Surgery
PROC: 0SG307J Fusion of Lumbosacral Joint with Autologous Tissue Substitute, Posterior Approach, Anterior Column, Open Approach (ICD-10-PCS; principal; 2020-07-20 07:00)
DX: M51.37 Other intervertebral disc degeneration, lumbosacral region (principal); M51.27 Other intervertebral disc displacement, lumbosacral region; G89.29 Other chronic pain; Z20.828 Contact with and (suspected) exposure to other viral communicable diseases
CPT/HCPCS: 36415; 72020; 80048; 82962; 83036; 83735; 85025; 86703; 86704; 86705; 86706; 86708; 86709; 86803; 87081; 87340; 87426; 88304; 93005; 97161; 97530; C1713; C9803; J7120; A4216; J2405